=== PATIENT | female | born 1955 | race Caucasian/White ===

== ENCOUNTER 2017-07-30 10:31 | Day surgery (SDC) | payer MEDICARE ==
[~2017-07-30] VITALS: Ht 154.9 cm; Wt 96.4 kg
[2017-07-30 11:13] LABS: HEMOGLOBIN 10.5 g/dL (12-16); MCH 28.2 pg (26.0-34.0); MCHC 31.8 g/dL (31.0-37.0); MCV 88.5 fL (80.0-100.0); MEAN PLATELET VOLUME 11.6 fL (7.4-10.4); RBC 3.73 10x6/uL (4.00-5.40); RDW 13.7 % (11.5-14.5); WBC 6.6 10x3/uL (4.8-10.8)
[2017-07-30] MEDS ORDERED: SUDAFED 30 MG T30 MG PO (12:05)
[2017-07-30] MEDS ORDERED: ZOLOFT50 MG PO (12:05)
[2017-07-30] MEDS ORDERED: ENDOCET 10-3251 TAB PO (12:06)
[2017-07-30] MEDS ORDERED: TRAZODONE HCL50 MG PO (12:06)
[2017-07-30] MEDS ORDERED: LINZESS290 MCG PO (12:06)
[2017-07-30 12:07] VITALS: BP 127/62; Ht 154.9 cm; Wt 96.4 kg
--- NOTE | 2017-07-30 12:51 | NUR ---
IV STARTED BY LAILA JIMENES R.N 22 GAUGE 1 STICK RT A/C GOOD BLOOD RETURN NO REDNESS OR SWELLING.
--- NOTE | 2017-07-30 13:53 | NUR ---
COLD SNARE USED NO HEAT.
--- NOTE | 2017-07-30 15:11 | NUR ---
1500--IV DC'D. DEYA ARCE 1510--DISCHARGE INSTRUCTIONS GIVEN, PT VERBALIZES UNDERSTANDING. PT OFF UNIT VIA WC. DEYA ARCE
--- NOTE | 2017-08-05 11:02 | OP ---
PATIENT NAME: TOM DESAI MEDICAL RECORD: [id number] :53 LOCATION:[facility] ADMISSION DATE: SURGEON: BRINDA HANEY DO DATE OF OPERATION: 07/30/2017 PROCEDURE: Colonoscopy. INDICATIONS FOR PROCEDURE: History of colon polyps, chronic constipation, and left lower quadrant abdominal pain. SCOPE: My [employer] video pediatric colonoscope. MEDICATIONS: Propofol 620 mg IV per anesthesia. WITHDRAWAL TIME: 15 minutes. COMPLICATIONS: None. FINDINGS: Informed consent was given. The patient was made comfortable with the above medication. After reaching an adequate level of sedation by slow IV push, the patient was placed on her left side. A digital rectal examination was performed and was normal. The endoscope was then advanced under direct visualization through the rectum to the cecum with visualization of the appendiceal orifice. The scope was slowly withdrawn and mucosa was carefully examined. The prep quality was fair, but inadequate to see all areas of the colonic wall due to some retained stool, which would not suction through the endoscope. There was 1 polyp visualized on today examination. It was a benign-appearing sessile polyp located in the transverse colon. It measured approximately 7 mm in diameter. It was removed using a cold snare in 1 piece. There was no bleeding visualized from the site after the polypectomy. Retroflexion was performed in the rectum with a normal-appearing rectal wall. There were no diverticula visualized on today examination. The endoscope was withdrawn from the patient. The patient tolerated the procedure well, and there were no complications. ESTIMATED BLOOD LOSS: Minimal. IMPRESSION: 1. A single benign-appearing sessile polyp as described above. It was removed using cold snare. 2. Chronic idiopathic constipation versus IBD constipation predominant. PLAN AND RECOMMENDATIONS: 1. Discharge home when recovery parameters are met. 2. Follow up biopsy specimen results. 3. High fiber diet. 4. Continue current medications. 5. Trial of Amitiza 24 mcg b.i.d. for chronic constipation. 6. Recommend supplementing diet with 2 tablespoons of fiber daily. 7. Avoid nonsteroidal anti-inflammatory drugs 14 days due to risk of bleeding from polyp site. 8. Recall colonoscopy in 1 year based on a history of polyps and an inadequate prep on today's examination. TRANSINT:[id number] Voice Confirmation ID: [id number] DOCUMENT ID: [id number] OPERATIVE REPORT [id number] GISELLETOM NATHAN A DO at 1102 CC: [id number] DICTATION DATE: 07/30/17 1343 CASUALTY CLAIMS SUPERVISOR: 07/30/17 1432 [facility] 07/30/17 [id number] [place] [address]
== END 2017-07-30 15:10 | disposition home or self-care (01) ==
LOC: D.OPS 10:31
PROVIDERS: Anesthesiology
DX: K63.5 Polyp of colon (principal); K59.04 Chronic idiopathic constipation; Z01.812 Encounter for preprocedural laboratory examination

== ENCOUNTER 2019-01-13 05:42 | Day surgery (SDC) | payer MEDICARE ==
[~2019-01-13] VITALS: Ht 156.2 cm; Wt 86.4 kg
[~2019-01-13 05:42] MED LIST: ENDOCET 10-3251 TAB PO; LINZESS290 MCG PO; SUDAFED 30 MG T30 MG PO; TRAZODONE HCL50 MG PO; ZOLOFT50 MG PO
[2019-01-13 06:10] LABS: BASOPHILS 0.5 % (0-2); EOSINOPHILS 1.9 % (0-7); HEMATOCRIT 30.1 % (36.0-48.0); HEMOGLOBIN 9.9 g/dL (12-16); LYMPHOCYTES 23.4 % (15-50); MCH 32.9 pg (26.0-34.0); MCHC 32.9 g/dL (31.0-37.0); MEAN PLATELET VOLUME 10.9 fL (7.4-10.4); MONOCYTES 6.7 % (2-11); NEUTROPHILS 67.5 % (40-80); RBC 3.01 10x6/uL (4.00-5.40); RDW 13.7 % (11.5-14.5); WBC 3.7 10x3/uL (4.8-10.8)
[2019-01-13 06:31] LABS: PLATELET COUNT 172 10x3/uL (130-400)
[2019-01-13] MEDS ORDERED: PERCOCET 5-3251 TAB PO (06:35)
[2019-01-13] MEDS ORDERED: PERCOCET 7.5/321 TAB PO (06:35)
[2019-01-13] MEDS ORDERED: METHOTREXATE2.5 MG PO (06:37)
[2019-01-13 06:38] LABS: CALC OSMOLALITY 277 mosm/kg (275-300); CALCIUM 8.4 mg/dL (8.5-10.1); CARBON DIOXIDE 24.1 mmol/L (21.0-32.0); CHLORIDE - SERUM 104 mmol/L (98-107); CREATININE - SERUM 0.7 mg/dL (0.6-1.3); GLUCOSE 80 mg/dL (74-106); POTASSIUM - SERUM 3.9 mmol/L (3.5-5.1); SODIUM 139 mmol/L (136-145); UREA NITROGEN 15 mg/dL (7-18); eGFR NON AFRICAN AMERICAN 89 mL/min (90-120)
[2019-01-13 06:46] LABS: APTT 32.2 SECONDS (22.8-39.4); INR 1.07 (0.85-1.17); PROTIME 13.4 SECONDS (11.6-15.0)
[2019-01-13 06:48] VITALS: BP 123/60; Ht 156.2 cm; Wt 86.4 kg
--- NOTE | 2019-01-15 16:05 | OP ---
PATIENT NAME: TOM DESAI MEDICAL RECORD: [id number] :53 LOCATION:[facility] ADMISSION DATE: SURGEON: BRINDA HANEY DO DATE OF OPERATION: 01/13/2019 PROCEDURE: Colonoscopy with polypectomy. INDICATIONS FOR PROCEDURE: Screening for colorectal cancer. The patient's last colonoscopy was 07/30/2017 and this is an early repeat due to an inadequate prep on that procedure. SCOPE: Olympus video pediatric colonoscope. MEDICATIONS: Propofol 780 mg IV per anesthesia. WITHDRAWAL TIME: 20 minutes. ESTIMATED BLOOD LOSS: Minimal. COMPLICATIONS: None. FINDINGS: Informed consent was given. The patient was made comfortable with the above medication. After reaching an adequate level of sedation by slow IV push, the patient was placed on her left side. A digital rectal examination was performed and it was normal. The endoscope was then advanced under direct visualization through the rectum to the cecum, confirmed by the presence of the appendiceal orifice and ileocecal valve. The endoscope was slowly withdrawn and mucosa was carefully examined. The prep quality was poor, but I was able to irrigate the colon adequately enough to see the mucosa. There were 2 polyps visualized on today's examination. They were both located in the descending colon. They were both benign-appearing and sessile. They ranged in size from 2-4 mm in diameter. They were both removed using hot forceps in 1 piece and completely retrieved. Retroflexion was performed in the rectum with visualization of a normal appearing rectal wall. The endoscope was withdrawn from the patient. The patient tolerated the procedure well and there were no complications. IMPRESSION: 1. Two polyps as described above, removed using hot forceps. 2. Otherwise, normal colonoscopy. PLAN AND RECOMMENDATIONS: 1. Discharge home when recovery parameters are met. 2. Follow up biopsy specimen results. 3. High fiber diet. 4. Continue current medications. 5. Recall colonoscopy in 5 years for surveillance based on history of polyps. TRANSINT:[id number] Voice Confirmation ID: [id number] DOCUMENT ID: [id number] OPERATIVE REPORT [id number] TOM DESAI BRINDA HANEY DO at 1605 CC: [id number] DICTATION DATE: 01/13/19921 [employer] AND DR[employer] COUNSELOR: 01/13/19929 [facility] 01/13/19 [facility] [address] [place] [address]
== END 2019-01-13 10:20 | disposition home or self-care (01) ==
LOC: D.OPS 05:42
PROVIDERS: Anesthesiology; ATTEND Internal Medicine Gastroenterology
DX: Z12.11 Encounter for screening for malignant neoplasm of colon (principal); K63.5 Polyp of colon; Z01.812 Encounter for preprocedural laboratory examination